=== PATIENT | female | born 1955 | race American Indian/Alaskan Native ===

== ENCOUNTER 2016-12-05 09:56 | Outpatient (CLI) | payer OTHER ==
--- NOTE | 2016-12-05 10:40 | XRay Report ---
AP and lateral view of the cervical spine. History: Neck pain. Findings: There is moderate to severe narrowing of the disc spaces at C5-6 and C6-7 with associated anterior hypertrophic changes. There is straightening of the lordotic curvature. No fractures or other acute findings are seen. The odontoid is intact. Impression: Cervical spondylosis at C5-6 and C6-7 with no acute findings.
--- NOTE | 2016-12-05 10:55 | XRay Report ---
AP and lateral lumbar spine. History: Back pain. Findings: There is mild dextroscoliosis of the upper lumbar and lower dorsal spine. The vertebral body heights are well-maintained. There is mild narrowing of the disc spaces at L3-4 through L5-S1. The pedicles are intact. Impression: Mild discogenic changes at the lower 3 lumbar levels. Mild dextroscoliosis.
== END 2016-12-05 09:57 | disposition home or self-care (01) ==
LOC: XRAY 09:56
PROVIDERS: ATTEND Internal Medicine
DX: M47.892 Other spondylosis, cervical region (principal); M51.36 Other intervertebral disc degeneration, lumbar region; M41.86 Other forms of scoliosis, lumbar region
CPT/HCPCS: 72040; 72100

== ENCOUNTER 2017-06-09 12:41 | Outpatient (CLI) | payer OTHER ==
--- NOTE | 2017-06-09 15:45 | Mammography Report ---
BILATERAL MAMMOGRAM: FINDINGS: The breasts are almost entirely fat (<25% glandular). No mass, distortion, suspicious calcification, or skin change is seen. CAD was utilized. IMPRESSION: Negative mammogram. There is no mammographic evidence of malignancy. RECOMMENDATION: Follow-up per ACS guidelines. BI-RADS CATEGORY: 1 = Negative ACR BI-RADS MAMMOGRAPHIC CODES: 0 = Needs additional imaging evaluation; 1 = Negative; 2 = Benign; 3 = Probably benign; 4 = Suspicious; 5 = Malignant; 6 = Known biopsy-proven malignancy COMMENT: 1. Dense breast tissue, i.e., adenosis, fibrocystic changes, etc., may obscure an underlying neoplasm. 2. Approximately 10% of cancers are not detected with mammography. 3. A negative mammography report should not delay biopsy if a clinically suspicious mass is present. COMMENT: Patient follow-up letters are generated in [employer]
== END 2017-06-09 12:42 | disposition home or self-care (01) ==
LOC: MAMMO 12:41
PROVIDERS: ATTEND Nurse Practitioner Family
DX: Z12.31 Encounter for screening mammogram for malignant neoplasm of breast (principal)
CPT/HCPCS: 77067